=== PATIENT | female | born 1990 | race Asian ===

== ENCOUNTER 2019-02-23 00:28 | Inpatient (IN) | payer BC ==
[2019-02-23] VITALS (25 sets, daily range): BP systolic 102–133; BP diastolic 59–84
[~2019-02-23] VITALS: Ht 180.3 cm; Wt 83.5 kg
--- NOTE | 2019-02-23 00:35 | NUR ---
Dr. Davidson at bedside for MSE.
[2019-02-23] MEDS ORDERED: LORAZEPAM 2 MG/1 ML VIAL ONE ×5 (00:36→02:03)
[2019-02-23] MEDS ORDERED: LEVETIRACETAM 500 MG/5 ML VIAL IV ONE ×2 (00:47→01:31)
[2019-02-23] MEDS ORDERED: LORAZEPAM 1 MG TABLET PO (00:50)
[2019-02-23] MEDS ORDERED: ONDA4VIA52 IV (00:50)
[2019-02-23] MEDS ORDERED: DIPH50VI15 IV (00:51)
[2019-02-23] MEDS ORDERED: diphenhydrAMINE 50 MG/1 ML VIAL ONE (00:54)
[2019-02-23] MEDS ORDERED: LORAZEPAM 2 MG/1 ML VIAL IV ONE ×6 (01:00→02:00)
[2019-02-23] MEDS ORDERED: LEVETIRACETAM IV 1,000 MG in IV DEXTROSE 5% 100 ML IV ONE ×2 (01:00→01:30)
[2019-02-23] MEDS ORDERED: PHENOBARBITAL SODIUM 130 MG/1 ML DISP.SYRIN ONE (01:12)
[2019-02-23] MEDS ORDERED: PHENOBARBITAL SODIUM IV ONE (01:15)
[2019-02-23] MEDS ORDERED: NORMAL SALINE IV ONE (01:15)
[2019-02-23] MEDS ORDERED: diphenhydrAMINE 50 MG/1 ML VIAL IV ONE (01:15)
[2019-02-23] MEDS ORDERED: PROPOFOL 100 ML ONE (01:27)
[2019-02-23] MEDS: PROPOFOL 100 ML IV PRN ×8 (01:36→23:26)
--- NOTE | 2019-02-23 01:55 | NUR ---
BP 97/33, stopped propofol IV
[2019-02-23] MEDS ORDERED: ETOMIDATE 20 MG/10 ML VIAL ONE (02:01)
--- NOTE | 2019-02-23 02:20 | NUR ---
Pt orally intubated with 7.5 ETT secured at 23cm lip line. Good color change noted on capnography. Equal and bilateral breath sounds auscultated. Pt placed on continuous mechanical ventilation ventilation. ETT secured with AnchorFast. Good skin integrity noted to area of application. Pt placed on ordered settings of A/C-20, VT-500, FIO2-100% Pt tolerated vent settings well. SpO2-100% Pt sxn'd and lavaged as needed. Sxn'd small amounts of clear/white secretions. Vent alarm parameters checked, on and audible. Bag/valve/mask at bedside. Vent plugged into red emergency outlet. Will continue to monitor Pt.
--- NOTE | 2019-02-23 02:22 | NUR ---
Xray at bedside.
--- NOTE | 2019-02-23 02:30 | NUR ---
Pt intubated by Dr. Davidson. Pt tolerated procedure well.
--- NOTE | 2019-02-23 02:40 | NUR ---
Mya haas in ED - 02/23/19 at 0243 by AARON Pt out of ER for CT.
--- NOTE | 2019-02-23 02:41 | NUR ---
Pt. taken off unit via stretcher w/ ACLS for CT,
[2019-02-23] MEDS ORDERED: ROCURONIUM BROMIDE 50 MG/5 ML VIAL IV ONE ×2 (02:45→11:58)
[2019-02-23] MEDS ORDERED: IV NORMAL SALINE 1000 ML BAG IV ONE (02:45)
[2019-02-23] MEDS ORDERED: ETOMIDATE 20 MG/10 ML VIAL IV ONE (02:45)
--- NOTE | 2019-02-23 02:51 | NUR ---
Pt back to ER from CT.
[2019-02-23] MEDS ORDERED: ALTEPLASE 2 MG VIAL XX ONE (03:15)
[2019-02-23 03:38] LABS: ABG BASE EXCESS 0.5 mmol/L; ABG HCO3 25.3 mmol/L; ABG PCO2 41.3 mmHg (35.0-45.0); ABG PH 7.405 (7.350-7.450); ABG PO2 536.8 mmHg (75.0-100.0); ABG SITE RIGHT BRACHIAL; ABG TOTAL HEMOGLOBIN 11.5 G/dL (12.0-16.0); COHb 0.1 % (0.5-1.5); MetHb 0.4 % (0.0-1.5); O2Hb 99.5 % (94.0-97.0); VENT MODE VENT - A/C; VT, ABG 500 mL
--- NOTE | 2019-02-23 03:44 | NUR ---
Blood collected and sent to lab,
[2019-02-23 03:51] LABS: BASOPHILS # (AUTO) 0.1 K/uL (0.0-8.0); BASOPHILS % (AUTO) 0.8 % (0.0-2.0); EOSINOPHILS # (AUTO) 0.1 K/uL (0.0-0.7); EOSINOPHILS % (AUTO) 1.8 % (0.0-7.0); HEMATOCRIT 31.7 % (31.2-41.9); HEMOGLOBIN 10.6 g/dL (10.9-14.3); LYMPHOCYTES # (AUTO) 1.4 K/uL (20.0-40.0); LYMPHOCYTES % (AUTO) 20.6 % (20.5-51.5); MEAN CORPUSCULAR HEMOGLOBIN 27.3 uug (24.7-32.8); MEAN CORPUSCULAR HGB CONC 33 g/dL (32.3-35.6); MEAN CORPUSCULAR VOLUME 81.9 fL (75.5-95.3); MONOCYTES # (AUTO) 0.5 K/uL (2.0-10.0); MONOCYTES % (AUTO) 6.9 % (0.0-11.0); NEUTROPHILS # (AUTO) 4.9 K/uL (1.8-8.9); NEUTROPHILS % (AUTO) 69.9 % (38.5-71.5); PLATELET COUNT (AUTO) 259 K/uL (179-408); RED BLOOD CELL COUNT(AUTO) 3.88 MIL/uL (3.63-4.92); WHITE BLOOD COUNT (AUTO) 6.9 K/uL (3.8-11.8)
[2019-02-23 03:55] LABS: CARBON DIOXIDE 25 mmol/L (21-32); CHLORIDE 106 mmol/L (98-107); GLUCOSE 94 mg/dL (74-106); POTASSIUM 3.5 mmol/L (3.5-5.1); UREA NITROGEN, BLOOD 10 mg/dL (7-18)
--- NOTE | 2019-02-23 04:00 | NUR ---
Inserted corrales catheter. Pt tolerated procedure well. Urine sample collected and sent to lab.
[2019-02-23 04:07] LABS: ALANINE AMINOTRANSFERASE 38 U/L (14-59); ALKALINE PHOSPHATASE 67 U/L (50-136); ASPARTATE AMINOTRANSFERASE 27 U/L (15-37); BILIRUBIN,DIRECT 0.1 mg/dL (0.0-0.2); BILIRUBIN,TOTAL 0.4 mg/dL (0.2-1.0); ETHANOL < 3 MG/DL (0-0); TOTAL PROTEIN, SERUM 6.4 g/dL (6.4-8.2)
--- NOTE | 2019-02-23 04:21 | NUR ---
Called [facility] to page Juancarlos Deluna NP.
[2019-02-23 04:32] LABS: *AMPHETAMINE, URINE NEGATIVE (NEGATIVE); *BARBITURATE, URINE NEGATIVE (NEGATIVE); *CANNABINOID, URINE NEGATIVE (NEGATIVE); *COCCAINE, URINE NEGATIVE (NEGATIVE); *OPIATE, URINE POSITIVE (NEGATIVE); *PHENCYCLIDINE SCREEN,URINE NEGATIVE (NEGATIVE)
--- NOTE | 2019-02-23 04:32 | NUR ---
Report given to [facility].
[2019-02-23 04:48] LABS: *URINE HCG, QUAL NEGATIVE (NEGATIVE)
--- NOTE | 2019-02-23 04:53 | NUR ---
Dr. Davidson on panel call with Juancarlos Deluna NP. Pt accepted for admission to CCU, diagnosis: status epilepticus.
[2019-02-23] MEDS ORDERED: Z GUARD REMEDY PASTE 57 GM TUBE TOP PRN (05:30)
[2019-02-23] MEDS ORDERED: ACETAMINOPHEN 650 MG SUPP.RECT RC PRN (05:30)
[2019-02-23] MEDS ORDERED: LORAZEPAM 2 MG/1 ML VIAL IV PRN (05:30)
[2019-02-23] MEDS ORDERED: ONDANSETRON 4 MG/2 ML VIAL IV PRN (05:30)
--- NOTE | 2019-02-23 05:40 | NUR ---
Received pt in unit, CCU BED 1, under the care of MALIHA WALDEN. DX: STATUS EPILEPTICUS. Mother at bedside. Pt sedated, on DIPRIVAN drip running at 50 mcg/kg/min. Pt eyes pinpoint, equally reactive 2mm, gag reflex present. Upper and lower extremities flaccid. Vent settings: AC 20, TV 500, FIO2 40%. Pt O2 sats up to 100%. Tele placed and noted to be SR with HR of 60. PIV on RLE and LLE patent and intact. Assessment completed. Skin check done. Aspiration and seizure precautions maintained at all times. Will continue plan of care.
[2019-02-23 05:49] LABS: MAGNESIUM 1.9 mg/dL (1.8-2.4); PHOSPHOROUS 3.2 mg/dL (2.5-4.9)
--- NOTE | 2019-02-23 06:30 | NUR ---
NG tube inserted without difficulty. Auscultated and CXR done for placement. Continue to monitor.
--- NOTE | 2019-02-23 07:25 | NUR ---
Received Pt orally intubated with 7.5 ETT secured at 23cm lip line. Pt placed on continuous mechanical ventilation ventilation. A/C-20, VT-500, FIO2-100% Pt tolerated vent settings well. SpO2-100%. ETT secured with AnchorFast. Pt sxn'd and lavaged as needed. Sxn'd small amounts of clear/white secretions. Vent alarm parameters checked, on and audible. Bag/valve/mask at bedside. Vent plugged into red emergency outlet. Will continue to monitor Pt.
--- NOTE | 2019-02-23 07:30 | NUR ---
Pulmonary serviced, Dr. Covington in the unit to examine. pt. report given, see orders hx.
--- NOTE | 2019-02-23 08:45 | NUR ---
with morning interventions patient with twitching Bilateral to upper extremities noted.
[2019-02-23] MEDS ORDERED: PANTOPRAZOLE SODIUM 40 MG VIAL IV SCH (09:00)
--- NOTE | 2019-02-23 09:00 | NUR ---
Attending physician Dr. Bennett in the unit to examine pt. report given orders to insert ML received due to suspected infection and uncertainty of insertion date of right chest picc line. Human Geography Instructor notified. Addendum: 02/23/19 at 1404 by SAMMI LEBRON RN notified of seizure activity noted only when patient aroused.
[2019-02-23] MEDS: ESOMEPRAZOLE SODIUM 40 MG VIAL IV SCH (09:22)
[2019-02-23] MEDS: ENOXAPARIN SODIUM 40 MG/0.4 ML DISP.SYRIN SQ SCH (09:24)
--- NOTE | 2019-02-23 09:39 | NUR ---
A call from neurologist Dr. Dueñas, full report given and orders for Stat EEG received, also orders to increase kepra to 1500mg Q12H. with recommendations to call while technical spec in the unit to evaluate images.
[2019-02-23] MEDS: LEVETIRACETAM IV 1,500 MG in IV DEXTROSE 5% 100 ML IV SCH ×2 (11:53→23:12)
[2019-02-23] MEDS ORDERED: LEVETIRACETAM IV 1,000 MG in IV DEXTROSE 5% 100 ML IV SCH (12:00)
--- NOTE | 2019-02-23 12:00 | NUR ---
avionics electronics technician in the unit for ordered eeg this morning, tech informed of Dr. Dueñas's request to be called during procedure.
--- NOTE | 2019-02-23 12:15 | NUR ---
A call from neurologist Dr. Bowling and orders to call if seizure activity noted.
[2019-02-23] MEDS: LORAZEPAM 2 MG/1 ML VIAL IV PRN (13:49)
--- NOTE | 2019-02-23 13:50 | NUR ---
patient with a period of restlessness and agitation, gagging and coughing attempting to remove ETT.
--- NOTE | 2019-02-23 14:00 | NUR ---
Onelia Belle in the unit. Addendum: 02/23/19 at 1416 by SAMMI LEBRON RN 1415. Midline to
--- NOTE | 2019-02-23 14:02 | NUR ---
a call to DR. Covington to notify pt's restlessness and agitation.
--- NOTE | 2019-02-23 14:37 | NUR ---
A call from Teresa Hutchins and as ordered by . she was asked of the date of insertion of picc line to right chest area. As stated by her "I'm not sure but the line is been in place for more than 1 month and was inserted in [facility], and according to home health nurse is clotted and unable to be used it was placed in [facility]" She'll call back with exact information.
--- NOTE | 2019-02-23 15:08 | NUR ---
a call back from Dr. Covington and orders to increase run propofol to max of 100mcg/kg/min for adequate sedation if needed it received.
--- NOTE | 2019-02-23 15:58 | NUR ---
A call to neurology services Dr. Bowling, as requested earlier update on pt's current condition given he was also informed of the need to increased propofol due to agitation. Orders to call him tomorrow morning for neuro clearance, before weaning.
--- NOTE | 2019-02-23 16:02 | NUR ---
A call from Ms. Teresa Villalta. pt's daughter and I was informed that Picc line to Right upper chest area placed on 01/31/19 at [facility] and that home health R.N. usually uses cath flow when in need to use line. And as stated by Teresa "the DrEva should decide what's best for my daughter, use it or removed the line". Attending will be notified.
--- NOTE | 2019-02-23 16:22 | NUR ---
A call to Attending physician Dr. Catrina Bennett and he was informed of PICC line insertion date, orders to continue monitor and leave Picc line without using it for a couple of days.
--- NOTE | 2019-02-23 17:41 | NUR ---
A call from Ms. Teresa Hampton. and as stated "I'm calling to make sure my daughter is getting her dilaudid 4mg 4 times a day, and Oxycontin 10mg po daily. otherwise she'll go into withdraw"
--- NOTE | 2019-02-23 17:48 | NUR ---
A call to Dr. Bennett and a call back to Ms. Moore to informed her that the will update her tomorrow morning.
--- NOTE | 2019-02-23 20:03 | NUR ---
PT ON CONT AMATO VENT WITH 7.5 ET/TUBE IN PLACE 23CM LIP LINE, CURRENT VENT SETTINGS, A/C 20, VT 500ML, 40%, PT IS SEDATED AT THIS TIME, DOES HAVE GOOD COUGH EFFORT, SUCTIONED THICK WHITISH SECRETIONS, AND ORAL CARE, CHECK ANCHOR FAST, CHANGE HME, ALL VENT ALARMS GOOD, AMBU BAG AT BEDSIDE, IA STABLE AT THIS TIME.Yimi HENRIQUEZ RCP Addendum: 02/23/19 at 2006 by TRU HENRIQUEZ RT Amended: Links added.
[2019-02-24] VITALS (24 sets, daily range): BP systolic 100–143; BP diastolic 54–110
[2019-02-24] MEDS: MORPHINE SULFATE 2 MG/1 ML DISP.SYRIN IV PRN ×2 (01:02→04:55)
--- NOTE | 2019-02-24 01:56 | NUR ---
Adela Deluna DNP notified of patient level of propofol and activity, also of patient's green urine. He states he is aware. No orders. Will continue to monitor.
[2019-02-24] MEDS: PROPOFOL 100 ML IV PRN ×7 (02:21→17:35)
--- NOTE | 2019-02-24 04:39 | NUR ---
LABS DRAWN. NO OTHER C/O.
[2019-02-24 04:57] LABS: BASOPHILS % (AUTO) 0.3 % (0.0-2.0); EOSINOPHILS # (AUTO) 0.1 K/uL (0.0-0.7); EOSINOPHILS % (AUTO) 1.5 % (0.0-7.0); HEMATOCRIT 36.4 % (31.2-41.9); LYMPHOCYTES # (AUTO) 1.1 K/uL (20.0-40.0); LYMPHOCYTES % (AUTO) 11.3 % (20.5-51.5); MEAN CORPUSCULAR HEMOGLOBIN 27.1 uug (24.7-32.8); MEAN CORPUSCULAR HGB CONC 33 g/dL (32.3-35.6); MEAN CORPUSCULAR VOLUME 82.2 fL (75.5-95.3); MONOCYTES # (AUTO) 0.6 K/uL (2.0-10.0); MONOCYTES % (AUTO) 6.4 % (0.0-11.0); NEUTROPHILS # (AUTO) 7.5 K/uL (1.8-8.9); NEUTROPHILS % (AUTO) 80.5 % (38.5-71.5); PLATELET COUNT (AUTO) 281 K/uL (179-408); RED BLOOD CELL COUNT(AUTO) 4.43 MIL/uL (3.63-4.92); WHITE BLOOD COUNT (AUTO) 9.4 K/uL (3.8-11.8)
[2019-02-24 05:07] LABS: BILIRUBIN,TOTAL 0.4 mg/dL (0.2-1.0); CREATININE 0.8 mg/dL (0.6-1.3); PHOSPHOROUS 4.4 mg/dL (2.5-4.9); POTASSIUM 3.7 mmol/L (3.5-5.1); TOTAL PROTEIN, SERUM 6.7 g/dL (6.4-8.2)
[2019-02-24 05:16] LABS: THYROID STIMULATING HORMONE 0.579 mIU/mL (0.358-3.740)
--- NOTE | 2019-02-24 05:58 | NUR ---
EOSS PATIENT HAS BEEN SEDATED ON 80MCG/KG/MIN OF PROPOFOL. SHE HAS NEEDED MORPHINE 2MG X 2 DOSES THIS SHIFT. SHE IS ABLE TO RESPOND AND OCCASIONALLY OPENS EYES TO VERBAL STIMULI, OTHERWISE WITHDRAWS APPROPRIATELY. NO EVIDENCE OF SEIZURE ACTIVITY SEEN DURING THIS SHIFT. VSS. MAE CATHETER EXHIBITS PROPOFOL GREEN URINE. PATIENT IS IN NO APPARENT DISTRESS OR DISCOMFORT AT THIS TIME.
--- NOTE | 2019-02-24 07:03 | NUR ---
Notified Dr. Dueñas of patient being on propofol 80mcg throughout the night and waking up and attempting to remove tube and lines when sedation paused or weaned down. He states "They want to do CPAP trials?" when confirmed with nurse, he states "OK".
--- NOTE | 2019-02-24 07:05 | NUR ---
At this time propofol titrated for weaning parameters.
--- NOTE | 2019-02-24 07:08 | NUR ---
PT RECEIVED ON CMV WITH SETTINGS OF AC20/VT 500/40%. PT SEDATED TOLERATING CURRENT VENT SETTINGS FINE WITH NO DISTRESS. BREATH SOUNDS CLEAR TO AUSCULTATION. 7.5 ETT IS SECURED AT 23CM BY LIP. VENT ALARM SET AND AUDIBLE.
--- NOTE | 2019-02-24 07:25 | NUR ---
At this time weaning off ventilator initiated after neuro clearance granted by Dr. Bowling who was called by night nurse. Patient placed on CPAP with PSV6 as ordered.
--- NOTE | 2019-02-24 07:30 | NUR ---
Patient in severe distress with eyes roll back unable to follow a single command, restless and agitated. Unable to follow commands. respiratory rate in the low 40's saturation at one point in the 88%-90%. sbp of 143/110 with Hr of 98-100.
--- NOTE | 2019-02-24 07:45 | NUR ---
Patient back on A/C mode Rt at bedside, back on sedation. and Neurologist notified of events orders to increase kepra to 2,000mg with fist dose to be given now. orders implemented.
[2019-02-24] MEDS: LORAZEPAM 2 MG/1 ML VIAL IV PRN ×4 (07:53→18:21)
[2019-02-24] MEDS: ESOMEPRAZOLE SODIUM 40 MG VIAL IV SCH (08:00)
[2019-02-24] MEDS: ENOXAPARIN SODIUM 40 MG/0.4 ML DISP.SYRIN SQ SCH (08:01)
--- NOTE | 2019-02-24 08:09 | NUR ---
PER MD ORDER WEANING INITIATED. PT PLACED ON CPAP WITH PRESSURE SUPPORT OF 8 FROM 719 TO 744. WEANING TERMINATED DUE TO AN EPISODE OF SEIZURE. PT PLACED BACK ON FULL VENTILATORY SUPPORT.
[2019-02-24] MEDS ORDERED: LEVETIRACETAM IV SCH (09:00)
[2019-02-24] MEDS ORDERED: DEXTROSE 5% IV SCH (09:00)
--- NOTE | 2019-02-24 12:00 | NUR ---
Attending physician Dr. Trujillo in the unit to see and examine patient, at this time pt's mother Ms. Moore at bedside and she was updated on pt's care plan by Dr. Trujillo. After updating pt's mother I was informed by Md of possible pt's transfer to [facility] for higher level of care.
--- NOTE | 2019-02-24 14:40 | NUR ---
At this time a call from [facility] center at [facility] full report given and I was informed that patient will be going to [facility] ICU 6th floor room 6453. A call back with ETA and report to be given. at . Melinda embedded case manager Hannah informed. admitting physician's name not obtained at this time she will follow up. Addendum: 02/24/19 at 1532 by SAMMI LEBRON RN As informed by embedded case manager at [place] Ms. Hannah rizzo admitting physician at [facility] will be Chip Egan neurologist.
--- NOTE | 2019-02-24 16:00 | NUR ---
A call to from [facility] transfer center at [facility] update on pt's condition given.
--- NOTE | 2019-02-24 16:28 | NUR ---
A call to [facility] Villalobos as requested earlier update on pt's current condition given and as instructed to call them when ambulance in the unit for ETA at [facility]. I was informed there will be no need to call admitting unit for report.
--- NOTE | 2019-02-24 18:28 | NUR ---
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 Bedside report given to critical care R.N. Alistair Jewell. due to periods of restlessness pt. medicated with ativan before departing. Also as requested one bottle of Propofol given to transport R.N. pharmacist notified and medication given after ok by pharmacist, due to estimated time of arrival and that by then propofol will be almost finished since rate was increased by transfer R.N. at this time to 90mcg/kg/min.
--- NOTE | 2019-02-24 18:55 | NUR ---
patient taken to [facility] neuro ICU to room 6453 via ambulance with critical care team. pt. on A/C 20, tv500 and FIO2 40%. propofol running at 83mcg/kg/min and increased by Moe Jewell for transfer due to slight restlessness. [place] to gravity. Ng to Left nare claped. ML to RUE patent and running with propofol.
--- NOTE | 2019-02-24 18:55 | NUR ---
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
[2019-02-24] MEDS ORDERED: MUPIROCIN 2% OINT 22 GM TUBE NS SCH (21:00)
== END 2019-02-24 19:16 | disposition short-term general hospital (02) | DRG 100 ==
LOC: ER 00:34 → CCU 05:02
PROVIDERS: ADMIT Hospitalist; ATTEND Hospitalist
PROC: 0D9670Z Drainage of Stomach with Drainage Device, Via Natural or Artificial Opening (ICD-10-PCS; principal; 2019-02-23)
PROC: 05HY33Z Insertion of Infusion Device into Upper Vein, Percutaneous Approach (ICD-10-PCS; principal; 2019-02-23)
PROC: 5A1945Z Respiratory Ventilation, 24-96 Consecutive Hours (ICD-10-PCS; principal; 2019-02-23)
PROC: 0BH17EZ Insertion of Endotracheal Airway into Trachea, Via Natural or Artificial Opening (ICD-10-PCS; principal; 2019-02-23)
DX: G40.901 Epilepsy, unspecified, not intractable, with status epilepticus (principal); J96.00 Acute respiratory failure, unspecified whether with hypoxia or hypercapnia; G04.81 Other encephalitis and encephalomyelitis; A69.20 Lyme disease, unspecified; G09 Sequelae of inflammatory diseases of central nervous system; G89.4 Chronic pain syndrome; D89.89 Other specified disorders involving the immune mechanism, not elsewhere classified; B94.8 Sequelae of other specified infectious and parasitic diseases; F41.9 Anxiety disorder, unspecified; Z90.49 Acquired absence of other specified parts of digestive tract
CPT/HCPCS: 36415; 36600; 70450; 71045; 74018; 80307; 83735; 84100; 84443; 84703; 85025; 87070; 93005; 94002; 94003; 95819; A4663; G0378; G0480; J1200; J1650; J1953; J2060; J2270; J2560; J2997; J3490; J7030; J7060